=== PATIENT | male | born 1955 | race African-American/Black ===

== ENCOUNTER 2022-05-07 16:53 | Emergency (ER) | payer OTHER ==
[~2022-05-07] VITALS: Ht 185.4 cm; Wt 98.2 kg
[2022-05-07 17:02] VITALS: BP 180/95
[2022-05-07] MEDS ORDERED: HYDR-4902 PO ×4 (21:36→21:40)
[2022-05-07] MEDS ORDERED: CLIN-203 PO (21:36)
== END 2022-05-07 21:53 | disposition home or self-care (01) ==
LOC: ER 16:53
DX: M79.662 Pain in left lower leg (principal); R59.9 Enlarged lymph nodes, unspecified; I10 Essential (primary) hypertension; E11.9 Type 2 diabetes mellitus without complications; E78.5 Hyperlipidemia, unspecified; Z90.89 Acquired absence of other organs
CPT/HCPCS: 93971